=== PATIENT | male | born 2000 ===

== ENCOUNTER 2021-01-04 15:49 | Emergency (ER) | payer OTHER, SELFPAY ==
[2021-01-04] MEDS ORDERED: Ondansetron ODT 4 MG TAB ONE (17:19)
== END 2021-01-04 18:05 | disposition home or self-care (01) ==
LOC: MADERS 15:49
DX: S90.32XA Contusion of left foot, initial encounter (principal); R19.7 Diarrhea, unspecified; R11.2 Nausea with vomiting, unspecified; W22.8XXA Striking against or struck by other objects, initial encounter; Y92.69 Other specified industrial and construction area as the place of occurrence of the external cause; Y99.0 Civilian activity done for income or pay
CPT/HCPCS: Q0162